=== PATIENT | female | born 1985 | race Caucasian/White ===

== ENCOUNTER 2021-07-01 05:15 | Inpatient (IN) | payer OTHER ==
[~2021-07-01] VITALS: Ht 160 cm; Wt 81.6 kg
[2021-07-01 05:19] VITALS: BP 124/73
[2021-07-01] MEDS ORDERED: NITROGLYCERIN 0.4 MG TAB SL ONE (05:20)
[2021-07-01] MEDS ORDERED: LORazepam 1 MG TAB PO ONE (05:20)
[2021-07-01] MEDS ORDERED: ASPIRIN 325 MG TAB PO ONE (05:20)
[2021-07-01 06:51] LABS: BASOPHILS % (AUTO) 0.4 % (0.0-2.0); EOSINOPHILS % (AUTO) 0.1 % (0.0-4.0); HEMATOCRIT 39.3 % (36-48); HEMOGLOBIN 13.1 g/dL (12.0-16.0); LYMPHOCYTES # (AUTO) 2.7 K/uL (2.5-16.5); LYMPHOCYTES % (AUTO) 29.4 % (20.5-51.1); MEAN CORPUSCULAR HEMOGLOBIN 33 pg (27-31); MEAN CORPUSCULAR HGB CONC 33 g/dL (33-37); MEAN CORPUSCULAR VOLUME 98.9 fL (80-94); MONOCYTES # (AUTO) 0.8 K/uL (0.8-1.0); MONOCYTES % (AUTO) 8.4 % (1.7-9.3); NEUTROPHILS # (AUTO) 5.7 K/uL (1.8-7.7); NEUTROPHILS % (AUTO) 61.7 % (42.2-75.2); PLATELET COUNT (AUTO) 239 K/uL (140-450); RED BLOOD CELL COUNT(AUTO) 3.97 MIL/uL (4.20-5.40); RED CELL DISTRIBUTION WIDTH 14.5 % (11.6-13.7); WHITE BLOOD COUNT (AUTO) 9.2 K/uL (4.8-10.8)
[2021-07-01] MEDS ORDERED: ONDANSETRON 4 MG ODT PO ONE (07:00)
[2021-07-01 07:05] LABS: ALBUMIN 3.6 g/dL (3.4-5.0); ANION GAP 17.2 (8-16); CARBON DIOXIDE 20.3 mmol/L (21-32); CREATININE 1.4 mg/dL (0.6-1.3); POTASSIUM 4.5 mmol/L (3.5-5.1); TOTAL BILIRUBIN 0.7 mg/dL (0.0-1.0)
[2021-07-01] MEDS ORDERED: NACL 0.9% 500 ML IV ONE (07:15)
[2021-07-01] MEDS ORDERED: FUROSEMIDE 40 MG/4 ML VIAL IVP SCH (09:10)
[2021-07-01] MEDS ORDERED: ONDANSETRON 4 MG/2 ML VIAL IVP PRN (10:20)
[2021-07-01] MEDS ORDERED: MORPHINE SULFATE 2 MG/ML SYR IVP PRN (10:20)
[2021-07-01] MEDS ORDERED: KETOROLAC 30 MG/ML VIAL IVP PRN (10:20)
[2021-07-01] MEDS ORDERED: ACETAMINOPHEN 325 MG TAB PO PRN (10:20)
[2021-07-01] MEDS ORDERED: LORazepam 2 MG/ML VIAL IVP PRN (10:20)
[2021-07-01] MEDS ORDERED: ALBUTEROL 0.083% 2.5 MG/3 ML NEBU INH PRN (10:20)
[2021-07-01 10:31] LABS: BARBITURATE, URINE NEGATIVE ng/ml (NEG <=200); BENZODIAZEPINE, URINE NEGATIVE ng/mL (NEG <=200); CANNABINOID, URINE NEGATIVE ng/mL (NEG <=50); COCAINE, URINE NEGATIVE ng/mL (NEG <=300); OPIATE, URINE NEGATIVE ng/mL (NEG <=2000); PHENCYCLIDINE SCREEN,URINE NEGATIVE ng/mL (NEG <=25)
[2021-07-01 12:35] VITALS: BP 117/73
[2021-07-01] MEDS ORDERED: PIPERACILLIN/TAZOBACTAM 3.375 GM in DEXTROSE 5% 50 ML IV SCH (13:00)
[2021-07-01] MEDS: PIPERACILLIN/TAZOBACTAM 3.375 GM in DEXTROSE 5% 50 ML IV SCH ×2 (13:31→21:58)
[2021-07-01 14:58] LABS: CREATINE KINASE MB 4.6 ng/mL (0-3.6)
[2021-07-01 16:00] VITALS: BP 115/84
[2021-07-01 20:00] VITALS: BP 119/79
[2021-07-02] VITALS: BP 111/79
[2021-07-02 04:00] VITALS: BP_SYST 112; BP_DIAS 67; BP_DIAS 69
[2021-07-02] MEDS: PIPERACILLIN/TAZOBACTAM 3.375 GM in DEXTROSE 5% 50 ML IV SCH ×2 (05:23→13:09)
[2021-07-02 06:32] LABS: BASOPHILS % (AUTO) 0.5 % (0.0-2.0); EOSINOPHILS # (AUTO) 0.1 K/uL (0-0.4); HEMATOCRIT 40.8 % (36-48); HEMOGLOBIN 13.4 g/dL (12.0-16.0); LYMPHOCYTES # (AUTO) 3.2 K/uL (2.5-16.5); LYMPHOCYTES % (AUTO) 44.7 % (20.5-51.1); MEAN CORPUSCULAR HEMOGLOBIN 32 pg (27-31); MEAN CORPUSCULAR HGB CONC 33 g/dL (33-37); MEAN CORPUSCULAR VOLUME 98.8 fL (80-94); MONOCYTES # (AUTO) 0.5 K/uL (0.8-1.0); MONOCYTES % (AUTO) 7.6 % (1.7-9.3); NEUTROPHILS # (AUTO) 3.3 K/uL (1.8-7.7); NEUTROPHILS % (AUTO) 46.2 % (42.2-75.2); PLATELET COUNT (AUTO) 213 K/uL (140-450); RED BLOOD CELL COUNT(AUTO) 4.12 MIL/uL (4.20-5.40); WHITE BLOOD COUNT (AUTO) 7.1 K/uL (4.8-10.8)
[2021-07-02 06:35] LABS: ALBUMIN 3.2 g/dL (3.4-5.0); ANION GAP 14.3 (8-16); CARBON DIOXIDE 21.5 mmol/L (21-32); CREATININE 1.3 mg/dL (0.6-1.3); POTASSIUM 3.8 mmol/L (3.5-5.1); TOTAL BILIRUBIN 1.1 mg/dL (0.0-1.0)
[2021-07-02 08:00] VITALS: BP 120/76
[2021-07-02] MEDS ORDERED: ASPIRIN 81 MG TAB.CHEW PO SCH (09:00)
[2021-07-02] MEDS ORDERED: ENOXAPARIN 40 MG/0.4 ML SYR SUBQ SCH (09:00)
[2021-07-02] MEDS ORDERED: FUROSEMIDE 40 MG/4 ML VIAL IVP SCH (09:00)
[2021-07-02 11:51] LABS: CREATINE KINASE MB 3.3 ng/mL (0-3.6)
[2021-07-02 12:00] VITALS: BP 115/70
[2021-07-02] MEDS ORDERED: FURO-572 PO (12:36)
[2021-07-02] MEDS ORDERED: LEVO750T51 PO (12:36)
[2021-07-02] MEDS ORDERED: CARV3.12 PO (12:38)
[2021-07-02] MEDS ORDERED: ASPI-1822 PO (12:38)
[2021-07-02] MEDS ORDERED: LISI5TAB18 PO (12:38)
[2021-07-02 16:00] VITALS: BP 111/70
== END 2021-07-02 18:45 | disposition home or self-care (01) | DRG 194 ==
LOC: MED 05:15 → MTU 10:22 → MMU 11:51
PROVIDERS: ADMIT Hospitalist; ATTEND Hospitalist
DX: I50.21 Acute systolic (congestive) heart failure (principal); J96.01 Acute respiratory failure with hypoxia; E66.9 Obesity, unspecified; F17.210 Nicotine dependence, cigarettes, uncomplicated; R07.89 Other chest pain; Z20.822 Contact with and (suspected) exposure to COVID-19; F15.90 Other stimulant use, unspecified, uncomplicated; F41.9 Anxiety disorder, unspecified; Z68.31 Body mass index [BMI] 31.0-31.9, adult
CPT/HCPCS: 36415; 71045; 71275; 80053; 80305; 82550; 82553; 83880; 84484; 85025; 85379; 87081; 93005; 96361; 96374; 99285; J1650; J1940; J2543; J7060; J7613; Q0092; Q0162; Q9967

== ENCOUNTER 2022-07-20 10:16 | Inpatient (IN) | payer OTHER ==
[~2022-07-20] VITALS: Ht 157.5 cm; Wt 88.9 kg
[~2022-07-20 10:16] MED LIST: ASPI-1822 PO; CARV3.12 PO; FURO-572 PO; LEVO750T75 PO; LISI5TAB18 PO
--- NOTE | 2022-07-20 10:18 | NUR ---
Patient BIBA to bed 10.
[2022-07-20] MEDS ORDERED: ONDANSETRON 4 MG/2 ML VIAL ONE ×2 (10:23→10:24)
[2022-07-20 10:28] VITALS: BP 87/67
[2022-07-20] MEDS ORDERED: ONDANSETRON 4 MG/2 ML VIAL IVP ONE ×2 (10:35→12:30)
--- NOTE | 2022-07-20 10:36 | NUR ---
37 y/o female biba from home, c/o "chf exacerbation" since last night, pt states she has been having sob, cp, bl leg edema with back pain since yesterday. pt a&ox4, does not ambulate at this time due to sob. pt given 1 nitro paste en route with some relief, placed on left forearm and started on cpap, pt currently not tolerating cpap. denies vomiting, diarrhea. skin is pink/warm/dry, bl lower leg redness and swelling. pt denies anyone sick in the household with the same symptoms. pt states pain is 10/10 at this time. patient positioned for comfort. hob elevated. bed down. ermd made aware of pt. pmh: chf nka med: lasix
--- NOTE | 2022-07-20 10:36 | NUR ---
Note undone in EDM - 07/20/22 at 1405 by MEDPMR 37 y/o female biba from home, c/o "chf exacerbation" since last night, pt states she has been having sob, cp, bl leg edema with back pack since yesterday. pt a&ox4, does not ambulate at this time due to sob. pt given 1 nitro paste en route with some relief, placed on left forearm and started on cpap, pt currently not tolerating cpap. denies vomiting, diarrhea. skin is pink/warm/dry, bl lower leg redness and swelling. pt denies anyone sick in the household with the same symptoms. pt states pain is 10/10 at this time. patient positioned for comfort. hob elevated. bed down. ermd made aware of pt. pmh: chf nka med: lasix
[2022-07-20] MEDS ORDERED: IPRATROPIUM 0.02% 0.5 MG/2.5 ML NEBU INH ONE (10:45)
[2022-07-20] MEDS ORDERED: ALBUTEROL 0.083% 2.5 MG/3 ML NEBU INH ONE (10:45)
[2022-07-20] MEDS ORDERED: ALBUTEROL SULFATE/IPRATROPIU 3 ML SOL IH ONE (10:50)
[2022-07-20 11:05] LABS: BASOPHILS % (AUTO) 0.5 % (0.0-2.0); EOSINOPHILS % (AUTO) 0.5 % (0.0-4.0); HEMATOCRIT 45.5 % (36-48); HEMOGLOBIN 14.7 g/dL (12.0-16.0); LYMPHOCYTES # (AUTO) 2.6 K/uL (2.5-16.5); LYMPHOCYTES % (AUTO) 30.4 % (20.5-51.1); MEAN CORPUSCULAR HEMOGLOBIN 32 pg (27-31); MEAN CORPUSCULAR HGB CONC 32 g/dL (33-37); MEAN CORPUSCULAR VOLUME 99.6 fL (80-94); MONOCYTES # (AUTO) 0.7 K/uL (0.8-1.0); MONOCYTES % (AUTO) 8.1 % (1.7-9.3); NEUTROPHILS # (AUTO) 5.2 K/uL (1.8-7.7); NEUTROPHILS % (AUTO) 60.5 % (42.2-75.2); PLATELET COUNT (AUTO) 153 K/uL (140-450); RED BLOOD CELL COUNT(AUTO) 4.56 MIL/uL (4.20-5.40); RED CELL DISTRIBUTION WIDTH 16.8 % (11.6-13.7); WHITE BLOOD COUNT (AUTO) 8.5 K/uL (4.8-10.8)
[2022-07-20] MEDS ORDERED: KETOROLAC 30 MG/ML VIAL IVP ONE (11:10)
[2022-07-20 11:26] LABS: ALBUMIN 4.2 g/dL (3.4-5.0); CARBON DIOXIDE 19.2 mmol/L (21-32); CREATININE 1.4 mg/dL (0.6-1.3); POTASSIUM 4.2 mmol/L (3.5-5.1); TOTAL BILIRUBIN 3.5 mg/dL (0.0-1.0)
[2022-07-20 11:29] LABS: PROTHROMBIN TIME 13.8 secs (10.8-13.4)
[2022-07-20 11:36] LABS: RSV NEGATIVE (NEGATIVE)
--- NOTE | 2022-07-20 11:48 | NUR ---
pt refusing bipap at this time, o2 saturation at 80%, ermd made aware
--- NOTE | 2022-07-20 12:16 | NUR ---
pt taking off non rebreather, states she does not want to wear it anymore, saturation at 83% magaly rm made aware
[2022-07-20] MEDS ORDERED: MORPHINE SULFATE 4 MG/ML SYR IVP ONE (12:20)
[2022-07-20] MEDS ORDERED: FUROSEMIDE 20 MG/2 ML VIAL IVP ONE (12:30)
[2022-07-20] MEDS ORDERED: ASPIRIN 81 MG TAB.CHEW PO ONE (12:30)
[2022-07-20 13:23] LABS: APPEARANCE,URINE CLEAR (CLEAR); BILIRUBIN,URINE NEGATIVE (NEGATIVE); BLOOD, URINE NEGATIVE (NEGATIVE); COLOR,URINE YELLOW (YELLOW); LEUKOCYTE ESTERASE ,URINE NEGATIVE (NEGATIVE); NITRITE, URINE NEGATIVE (NEGATIVE); PH,URINE 5.5 (5.0-9.0); UGLUCOSE NEGATIVE (NEGATIVE)
--- NOTE | 2022-07-20 13:30 | NUR ---
comode placed at bedside at this time for frequent urination, pt refusing bedpain at this time
[2022-07-20] MEDS ORDERED: HYDROcodone/APAP 5/325 MG 1 TAB TAB PO PRN (14:35)
[2022-07-20] MEDS ORDERED: ONDANSETRON 4 MG/2 ML VIAL IM/IVP PRN (14:35)
[2022-07-20] MEDS ORDERED: DOCUSATE SODIUM 100 MG GELCAP PO PRN (14:35)
[2022-07-20] MEDS ORDERED: SODIUM PHOS / POTASSIUM PHOS 1 PKT PDR PO PRN (14:35)
[2022-07-20] MEDS ORDERED: MORPHINE SULFATE 2 MG/ML SYR IVP PRN (14:35)
[2022-07-20] MEDS ORDERED: ACETAMINOPHEN 325 MG TAB PO PRN (14:35)
[2022-07-20] MEDS ORDERED: POTASSIUM CHLORIDE 40 MEQ, LIDOCAINE MPF 1% 25 MG in NACL 0.9% 250 ML IV PRN (14:35)
[2022-07-20] MEDS ORDERED: MAG SULF 2000 MG/WATER PREMIX 50 ML IV PRN (14:35)
[2022-07-20 14:58] LABS: MAGNESIUM 1.8 mg/dL (1.8-2.4); PHOSPHORUS 8.3 mg/dL (2.5-4.9)
--- NOTE | 2022-07-20 15:04 | NUR ---
Patient will be admitted to care of Sarahi SANTOS. Admitted to Telemetry. Will go to room 112A. Belongings list completed. Report to Roverto Chapman
--- NOTE | 2022-07-20 15:20 | NUR ---
ADMITTED PATIENT FROM ER.TRANSPORTED VIA GURNEY. ALERT AND ORIENTED X3. PATIENT HAVING SOB WITH USE OF ACCESSORY MUSCLE NOTED. ON NON-REBREATHER MASK @ 15LPM. O2 SAT 83%.INITIAL BP 74/56. HR 87. RR25. RAPID RESPONSE ACTIVATED. RT PLACED PATIENT ON BIPAP MACHINE. O2 SAT WENT UP TO 91%. PATIENT AGITATED TAKING BI-PAP MASK OFF. INSTRUCTED TO LEAVE BI-PAP MASK ON. DR. GO NOTIFIED REGARDING PATIENT CONDITION. PER DR. GO HE WILL COME AND SEE THE PATIENT.
--- NOTE | 2022-07-20 15:30 | NUR ---
Rapid Response Called on patient on the floor, Bipap attempted but patient refused, several attempts to talk patient to wearing the bipap mask, after MD arrived decision to place patient on HFNC to maintain oxygenation, and due to patient's refusal of the bipap mask. Pt was placed on HFNC and was tolerating flow and maintained saturations.
[2022-07-20 16:00] VITALS: BP 96/52
--- NOTE | 2022-07-20 16:00 | NUR ---
HERE AND SEEN THE PATIENT. UPDATED PT'S. VITAL SIGNS. DR. GO ORDERED ATIVAN AND PLACED PATIENT ON HI-FLOW AND CONTINUE TO MONITOR.
[2022-07-20] MEDS ORDERED: LORazepam 2 MG/ML VIAL IVP SCH (16:10)
[2022-07-20] MEDS ORDERED: LORazepam 2 MG/ML VIAL IVP PRN (16:10)
[2022-07-20 18:00] VITALS: BP 99/60
--- NOTE | 2022-07-20 18:00 | NUR ---
PATIENT ASLEEP. NOT IN DISTRESS. ON HI-FLOW OXYGEN TOLERATING WELL. SITTER AT BEDSIDE AT ALL TIMES.
[2022-07-20] MEDS ORDERED: ALBUTEROL SULFATE/IPRATROPIU 3 ML SOL IH PRN (18:55)
--- NOTE | 2022-07-20 19:25 | NUR ---
RECEIVED BEDSIDE REPORT FROM DAY SHIFT RN JUAN FOR CONTINUITY OF CARE. PT IS CURRENTLY ASLEEP ON HIGH FLOW 30L WITH FIO2 100%. PT IS SATING 93%. PT IS NOT IN ANY DISTRESS AT THIS TIME. PT HAS LEFT HAND 22 GAUGE SALINE LOCK. WILL CONTINUE TO MONITOR THE PT.
[2022-07-20 20:00] VITALS: BP 102/61
[2022-07-20] MEDS ORDERED: carvediloL 3.125 MG TAB PO SCH (21:00)
--- NOTE | 2022-07-20 21:04 | NUR ---
PT OBSERVED. PT IS HAVING LABORED BREATHING. PT IS SATING 90%. DROOLING NOTED ON MOUTH AND WAS SUCTION.
--- NOTE | 2022-07-20 22:09 | NUR ---
PT MOTHER CALLED FOR UPDATE. UPDATED HER ON THE PT STATUS. ALL QUESTIONS ANSWERED.
[2022-07-21] VITALS: BP 98/53
--- NOTE | 2022-07-21 00:01 | NUR ---
PT OBSERVED. PT IS SLEEPING. PT IS SATING 97% ON HIGH FLOW 40L/MIN WITH FIO2 100%. WILL CONTINUE TO MONITOR THE PT.
[2022-07-21] MEDS ORDERED: ETOMIDATE 20 MG/10 ML VIAL IVP ONE (01:35)
[2022-07-21] MEDS ORDERED: ROCURONIUM 50 MG/5 ML VIAL IV ONE (01:35)
--- NOTE | 2022-07-21 01:35 | NUR ---
NICKI JI CALLED ON OVERHEAD SPEAKER, RESPONDED TO ROOM 112, PT WAS PULSELESS, AND NON RESPONSIVE. CPR PERFORMED UNDER DIRECTION OF ER DR. PT INTUBATED USING A GLIDESCOPE 3 BLADE, AND A 7.5 ETT TUBE. THE TUBE WAS SECURED AT 23CM, AFTER COLOR CHANGE NOTED ON CAPNOMETER AND BILATERAL BREATH SOUNDS CONFIRMED.
--- NOTE | 2022-07-21 01:55 | NUR ---
DURING MY BREAK,COVERING RN FRANCISCA NOTICED PT WAS VOMITING FROM MOUTH. CALLED [facility]. GOT CALLED THAT PT WAS CODING. PT WAS BEING RESUSCITATED WHEN I WALKED BACK. GAVE REPORT TO THE DOCTOR AND GROUP ABOUT THE PT. THE TEAM WAS UNABLE TO GET A HEART BEAT ON THE PT. TIME OF WAS 0151.
--- NOTE | 2022-07-21 02:17 | NUR ---
CALLED [facility]. SPOKE WITH BERNABE. SHE SAID COORDINATOR WILL CALL BACK TO THE HOSPITAL. WAITING FOR THE CALL.
--- NOTE | 2022-07-21 02:20 | NUR ---
CALLED PT MOM KATH. TOLD KATH EXACTLY WHAT HAPPEN WITH THE DAUGHTER. KATH CRIED AND YELLED AND HANGED UP THE PHONE.
--- NOTE | 2022-07-21 02:28 | NUR ---
CALLED THE CLINICAL RESEARCH NURSE COORDINATOR NUMBER AND SPOKE WITH MARIA T. GAVE HER THE INFORMATION ABOUT THE PT. SHE SAID THE CLINICAL RESEARCH NURSE COORDINATOR WILL CALL BACK.
--- NOTE | 2022-07-21 03:48 | NUR ---
RECEIVED CALL BACK FROM [facility]. UPDATED LE WITH PT INFORMATION. ALL QUESTIONS ANSWERED.
--- NOTE | 2022-07-21 05:19 | NUR ---
CALL [facility] FOR FOLLOW UP ON THE CALL BACK. CORDUROY BRUSHER OPERATOR SAID SHE CANNOT GIVE ME A TIME FRAME WHEN THEY WILL BE ABLE TO CALL BACK. [facility] ARE BUSY CALLING OTHER PLACES.
--- NOTE | 2022-07-21 07:11 | NUR ---
ENDORSE PT TO DAY SHIFT RN ARSLAN. UPDATED RN THAT [facility] STILL NEEDS TO CALL BACK.
--- NOTE | 2022-07-21 07:18 | NUR ---
[facility] CALLED ABOUT THE PT. GAVE REPORT TO LIBRADO SURESH. LIBRADO SAID THEY ARE GOING TO LET THIS ONE GO AND ITS OKAY TO RELEASE THE BODY.
[2022-07-21] MEDS ORDERED: FUROSEMIDE 20 MG/2 ML VIAL IVP SCH (09:00)
[2022-07-21] MEDS ORDERED: lisinopriL 5 MG TAB PO SCH (09:00)
[2022-07-21] MEDS ORDERED: PANTOPRAZOLE 40 MG INJ VIAL IVP SCH (09:00)
[2022-07-21] MEDS ORDERED: ASPIRIN 81 MG TAB.CHEW PO SCH (09:00)
--- NOTE | 2022-07-21 22:30 | NUR ---
[facility] ARRIVED AND PICKED UP THE PT. ALL PAPERWORK SIGNED.
== END 2022-07-21 02:00 | DRG 133 ==
LOC: MED 10:16 → MTU 14:31
PROVIDERS: ADMIT Hospitalist; ATTEND Hospitalist
PROC: 0BH17EZ Insertion of Endotracheal Airway into Trachea, Via Natural or Artificial Opening (ICD-10-PCS; principal; 2022-07-20)
PROC: 5A09357 Assistance with Respiratory Ventilation, Less than 24 Consecutive Hours, Continuous Positive Airway Pressure (ICD-10-PCS; 2022-07-20)
PROC: 5A0935A Assistance with Respiratory Ventilation, Less than 24 Consecutive Hours, High Flow/Velocity Cannula (ICD-10-PCS; 2022-07-20)
PROC: 5A12012 Performance of Cardiac Output, Single, Manual (ICD-10-PCS; 2022-07-20)
DX: J96.01 Acute respiratory failure with hypoxia (principal); I46.9 Cardiac arrest, cause unspecified; N17.0 Acute kidney failure with tubular necrosis; I11.0 Hypertensive heart disease with heart failure; I50.9 Heart failure, unspecified; R65.10 Systemic inflammatory response syndrome (SIRS) of non-infectious origin without acute organ dysfunction; Z20.822 Contact with and (suspected) exposure to COVID-19; F15.10 Other stimulant abuse, uncomplicated; F17.200 Nicotine dependence, unspecified, uncomplicated; E80.6 Other disorders of bilirubin metabolism; R74.01 Elevation of levels of liver transaminase levels; Z91.14 Patient's other noncompliance with medication regimen
CPT/HCPCS: 31500; 36415; 36600; 71045; 80053; 81003; 82803; 83605; 83735; 83880; 84100; 84484; 85025; 85610; 85730; 87040; 87081; 87086; 87420; 92950; 93005; 94640; 94660; 96374; 96375; 96376; 99291; J1885; J1940; J2060; J2270; J2405; J3490; J7613; Q0092